=== PATIENT | female | born 1990 | race Caucasian/White ===

== ENCOUNTER 2016-07-14 11:57 | Inpatient (IN) | payer OTHER ==
[2016-07-14] MEDS ORDERED: IV VANCOMYCIN PER PHARMACY 1 EACH MISC MISCELLANE PRN (12:34)
[2016-07-14] MEDS ORDERED: SODIUM CHLORIDE 0.9% 1,000 ML IV STA (12:34)
[2016-07-14] MEDS ORDERED: VANCOMYCIN 1,000 MG in SODIUM CHLORIDE 0.9% 250 ML IVPB STA (12:34)
[2016-07-14] MEDS ORDERED: AMPICILLIN-SULBACTAM 3 GM in SODIUM CHLORIDE 0.9% 100 ML IVPB STA (12:35)
--- NOTE | 2016-07-14 12:43 | ED ---
General Adult HPI - General Chief complaint: Extremity Injury, Upper Stated complaint: ARM SWELLING, POSS MRSA Time Seen by Provider: 07/14/16 12:22 Source: patient Mode of arrival: ambulatory Limitations: no limitations - History of Present Illness Initial comments: This 26-year-old white female presents with a complaint of some infections. She states that she had an abscess on her back over the past week. This apparently was drained on 07/08/2016. She then followed up with an infectious disease doctor. She was told that she has MRSA. She just finished a course of Bactrim yesterday and is still taking Keflex. She then relates that she developed some swelling to her left arm over the past day or 2. This is in the left antecubital region. The swelling is fairly severe. She was seen at [facility] yesterday and told that she needed to be admitted to the hospital. She apparently left and followed up today as she lives in this area. She also complains of some swelling present to her right wrist area and somewhat in her right antecubital region. She denies any intravenous drug use. She denies ever utilizing heroin. She denies any fevers or chills. She states that the pain overall is fairly minimal. They have prescribed her some [place] for pain as well. She does have a history of MRSA remotely as well. No other complaints or modifying factors. She denies any possibility of . - Related Data Home Medications Medication Instructions Recorded Confirmed Cephalexin [Keflex] 500 mg PO Q6H 07/14/16 07/14/16 HYDROcodone/APAP 7.5-325MG [[place] 1 tab PO Q4H PRN 07/14/16 07/14/16 7.5-325] Allergies Allergy/AdvReac Type Severity Reaction Status Date / Time No Known Allergies Allergy Verified 07/14/16 12:36 Review of Systems ROS Statement: Those systems with pertinent positive or pertinent negative responses have been documented in the HPI. ROS Other: All systems not noted in ROS Statement are negative. Past Medical History Past Medical History: No Reported History History of Any Multi-Drug Resistant Organisms: MRSA Date of last positivie culture/infection: 2011, 2016 MDRO Source:: left knee, back Past Surgical History: No Surgical Hx Reported Past Psychological History: No Psychological Hx Reported Smoking Status: Current every day smoker Past Alcohol Use History: Daily, Heavy Past Drug Use History: None Reported General Exam - General Exam Comments Initial Comments: GENERAL: The patient is well nourished and well hydrated. VITAL SIGNS: Heart rate, blood pressure, respiratory rate reviewed as recorded in nurse's notes. EYES: Pupils are round and reactive. Extraocular movements are intact. No conjunctival / lid redness or swelling. ENT: No external evidence of injury, swelling, or ecchymosis. Airway is patent. Throat is clear. NECK: Nontender. No swelling or evidence of injury. No subcutaneous emphysema. Trachea is midline. No thyroid mass. HEART: Regular rate and rhythm. Good peripheral pulses. LUNGS/CHEST: Breath sounds clear and equal bilaterally. No rales, rhonchi, or wheezes. No ecchymosis, subcutaneous emphysema, or tenderness. ABDOMEN: Abdomen soft without tenderness. No palpable masses or organomegaly. No peritoneal signs. No abdominal wall swelling or ecchymosis. EXTREMITIES: No extremity tenderness. Normal muscle tone and function. No thoracolumbar tenderness. NEUROLOGIC: Sensation is grossly intact. Cranial nerve exam reveals face is symmetrical, tongue is midline, speech is clear. SKIN: There is significant swelling and suspected fluctuance noted to the left antecubital region. There is severe swelling of the left arm with associated erythema worse in the antecubital region. There is good pulses bilaterally. There is some slight swelling present in the right wrist area more over the dorsal aspect. There is some mild swelling and tortuosity of the veins noted in the right antecubital region with no associated erythema. There is very small diamond noted over the left wrist dorsally near associated veins. There is a wound noted to her back. This is in the T62T 11 region at midline extending laterally. There are 2 areas of denuded tissue. There is one area of necrosis noted over the right portion. There is some mild associated erythema. There is a slight yellowish drainage noted. There is no other integumentary abnormalities. PSYCHIATRIC: Alert and oriented. Appropriate behavior and judgment. Limitations: no limitations Course Vital Signs 07/14/16 07/14/16 12:01 14:30 Temperature 98.7 F 98.1 F Pulse Rate 71 83 Respiratory 18 18 Rate Blood Pressure 108/67 112/64 O2 Sat by Pulse 100 100 Oximetry Medical Decision Making - Medical Decision Making The patient was seen and examined. All diagnostics were reviewed. An IV is started and she is started on vancomycin and Unasyn. She denies any intravenous drug use although it is felt as though this type of scenario is highly suspicious for intravenous drug use. Her mother is present upon questioning and she refuses utilizing intravenous heroin twice. Later on and ER course, the mother leaves and the patient does admit to utilizing heroin regularly. She states that she usually only snorts it. She tried to inject herself one time several weeks ago but denies any other intravenous injecting. Her drug screen came back for narcotics, marijuana, cocaine, and benzodiazepines. She is counseled extensively regarding drug use/abuse. Her laboratories reviewed. She had an ultrasound done of her left antecubital region which shows a 5 cm 4 cm abscess. It is felt as though she would need surgical drainage of this area and possibly debridement of her back wound. The case is discussed with Dr. Schaefer and he is agreeable to admission with infectious disease to consult. She'll likely go to the operating room tomorrow morning. - Lab Data Result diagrams: 07/14/16 12:50 07/14/16 12:50 Lab Results 07/14/16 07/14/16 07/14/16 Range/Units 12:50 12:50 12:50 WBC 3.5 L (3.8-10.6) k/uL RBC 4.14 (3.80-5.40) m/uL Hgb 11.3 L (11.4-16.0) gm/dL Hct 34.0 (34.0-46.0) % MCV 82.1 (80.0-100.0) fL MCH 27.3 (25.0-35.0) pg MCHC 33.3 (31.0-37.0) g/dL RDW 13.4 (11.5-15.5) % Plt Count 415 (150-450) k/uL Neutrophils % 67 % Lymphocytes % 26 % Monocytes % 4 % Eosinophils % 2 % Basophils % 0 % Neutrophils # 2.4 (1.3-7.7) k/uL Lymphocytes # 0.9 L (1.0-4.8) k/uL Monocytes # 0.1 (0-1.0) k/uL Eosinophils # 0.1 (0-0.7) k/uL Basophils # 0.0 (0-0.2) k/uL Sodium 137 (137-145) mmol/L Potassium 4.6 (3.5-5.1) mmol/L Chloride 99 (98-107) mmol/L Carbon Dioxide 26 (22-30) mmol/L Anion Gap 12 mmol/L BUN 13 (7-17) mg/dL Creatinine 0.72 (0.52-1.04) mg/dL Est GFR (MDRD) Af Amer >60 (>60 ml/min/1.73 sqM) Est GFR (MDRD) Non-Af >60 (>60 ml/min/1.73 sqM) Glucose 104 H (74-99) mg/dL Calcium 9.1 (8.4-10.2) mg/dL Total Bilirubin 0.6 (0.2-1.3) mg/dL AST 33 (14-36) U/L ALT 30 (9-52) U/L Alkaline Phosphatase 93 (38-126) U/L Total Protein 8.1 (6.3-8.2) g/dL Albumin 3.4 L (3.5-5.0) g/dL HCG, Qual Not Detected Urine Color Yellow Urine Appearance Cloudy H (Clear) Urine pH 7.0 (5.0-8.0) Ur Specific [place] 1.016 (1.001-1.035) Urine Protein Trace H (Negative) Urine Glucose (UA) Negative (Negative) Urine Ketones Negative (Negative) Urine Blood Negative (Negative) Urine Nitrite Negative (Negative) Urine Bilirubin Negative (Negative) Urine Urobilinogen 6.0 (<2.0) mg/dL Ur Leukocyte Esterase Negative (Negative) Urine RBC <1 (0-5) /hpf Urine WBC 6 H (0-5) /hpf Ur Squamous Epith Cells 10 H (0-4) /hpf Urine Mucus Rare H (None) /hpf Urine Yeast (Budding) Rare H (None) /hpf Urine Opiates Screen Detected H (NotDetected) Ur Oxycodone Screen Not Detected (NotDetected) Urine Methadone Screen Not Detected (NotDetected) Ur Propoxyphene Screen Not Detected (NotDetected) Ur Barbiturates Screen Not Detected (NotDetected) U Tricyclic Antidepress Not Detected (NotDetected) Ur Phencyclidine Scrn Not Detected (NotDetected) Ur Amphetamines Screen Not Detected (NotDetected) U Methamphetamines Scrn Not Detected (NotDetected) U Benzodiazepines Scrn Detected H (NotDetected) Urine Cocaine Screen Detected H (NotDetected) U Marijuana (THC) Screen Detected H (NotDetected) Disposition Clinical Impression: Abscess of antecubital fossa, Polysubstance abuse, IV drug abuse, Open back wound, Anemia, Failure of outpatient treatment Disposition: ADMITTED IP TO THIS [facility] Condition: Fair Time of Disposition: 14:58 Decision Date: 07/14/16 Decision Time: 14:59
[2016-07-14 13:12] LABS: Basophils % (A) 0 %; CH 27.4; CHCM 33.5; Eosinophils # (A) 0.1 k/uL (0-0.7); Eosinophils % (A) 2 %; HDW 2.71; HGB 11.3 gm/dL (11.4-16.0); Luc # (Auto) 0.07; Luc % (Auto) 2; Lymphocytes # (A) 0.9 k/uL (1.0-4.8); Lymphocytes % (A) 26 %; MCH 27.3 pg (25.0-35.0); MCHC 33.3 g/dL (31.0-37.0); MCV 82.1 fL (80.0-100.0); Mean Platelet Volume 6.4; Monocytes # (A) 0.1 k/uL (0-1.0); Monocytes % (A) 4 %; Neutrophils # (A) 2.4 k/uL (1.3-7.7); Neutrophils % (A) 67 %; RBC 4.14 m/uL (3.80-5.40); RDW 13.4 % (11.5-15.5); WBC 3.5 k/uL (3.8-10.6); WBC (Perox) 3.61
[2016-07-14 13:20] LABS: HCG,Qualitative Serum Not Detected
[2016-07-14 13:24] LABS: ALT 30 U/L (9-52); AST 33 U/L (14-36); Alkaline Phosphatase 93 U/L (38-126); Anion Gap 12 mmol/L; Blood Urea Nitrogen 13 mg/dL (7-17); Calcium 9.1 mg/dL (8.4-10.2); Carbon Dioxide 26 mmol/L (22-30); Chloride 99 mmol/L (98-107); Glucose 104 mg/dL (74-99); Non-African American GFR(MDRD) >60 (>60 ml/min/1.73 sqM); Potassium 4.6 mmol/L (3.5-5.1); Sodium 137 mmol/L (137-145); Total Bilirubin 0.6 mg/dL (0.2-1.3); Total Protein 8.1 g/dL (6.3-8.2)
[2016-07-14 13:36] LABS: Appearance,Urine Cloudy (Clear); Bilirubin,Urine Negative (Negative); Glucose,Urine (UA) Negative (Negative); Ketones,Urine Negative (Negative); Leukocyte Esterase,Urine Negative (Negative); Mucus,Urine Rare /hpf; Nitrite,Urine Negative (Negative); Particle Count 6143; Protein,Urine Trace (Negative); RBC,Urine <1 /hpf (0-5); Specific Gravity,Urine 1.016 (1.001-1.035); Squamous Epithelial Cell,Urine 10 /hpf (0-4); UA Billing (MACRO vs. MICRO) MICRO; WBC,Urine 6 /hpf (0-5)
--- NOTE | 2016-07-14 13:59 | US ---
EXAMINATION TYPE: US extremity nonvasc mass LT DATE OF EXAM: 07/14/2016 1:47 PM COMPARISON: No previous CLINICAL HISTORY: swelling, possible abscess. Left antecubital region swelling x 2 days Left antecubital area of swelling: superficial 4.9 x 2.6 x 4.1cm irregular complex vascular area with internal mobile debris IMPRESSION: Findings suggest phlegmon or abscess.
[2016-07-14] MEDS ORDERED: NALOXONE 0.4 MG/ML 1 ML VIAL IV PRN (14:59)
[2016-07-14] MEDS ORDERED: ONDANSETRON 4 MG/2 ML VIAL IVP PRN (14:59)
[2016-07-14] MEDS ORDERED: HYDROcodone/APAP 7.5-325MG 1 EACH TAB PO PRN (15:03)
[2016-07-14 16:02] VITALS: BMI 20.1
[2016-07-14 16:51] VITALS: RESP 16
[2016-07-14] MEDS: AMPICILLIN-SULBACTAM 3 GM in SODIUM CHLORIDE 0.9% 100 ML IVPB SCH (17:26)
[2016-07-14] MEDS: VANCOMYCIN 1,000 MG in SODIUM CHLORIDE 0.9% 250 ML IVPB SCH (21:30)
[2016-07-15] MEDS: AMPICILLIN-SULBACTAM 3 GM in SODIUM CHLORIDE 0.9% 100 ML IVPB SCH ×3 (00:10→12:41)
[2016-07-15] MEDS: VANCOMYCIN 1,000 MG in SODIUM CHLORIDE 0.9% 250 ML IVPB SCH ×3 (06:14→21:39)
[2016-07-15] MEDS ORDERED: KETOROLAC 30 MG/ML 1 ML VIAL ONE (07:46)
[2016-07-15] MEDS ORDERED: PROPOFOL 10 MG/ML 20 ML VIAL IV ONE (07:46)
[2016-07-15] MEDS ORDERED: HYDROmorphone (PF) 1 MG/ML ONE (07:46)
[2016-07-15] MEDS ORDERED: LIDOCAINE 1% INJ 10MG/ML (20 ML MDV) ONE (07:46)
[2016-07-15] MEDS ORDERED: SUCCINYLCHOLINE CHLORIDE 100 MG/5 ML SYR IV ONE (07:46)
[2016-07-15] MEDS ORDERED: ONDANSETRON 4 MG/2 ML VIAL ONE (07:46)
[2016-07-15] MEDS ORDERED: fentaNYL (PF) 50 MCG/ML 2 ML AMP ONE (07:46)
[2016-07-15] MEDS ORDERED: MIDAZOLAM 2 MG/2 ML VIAL ONE (07:46)
[2016-07-15] MEDS ORDERED: IV FLUID CONTINUATION 600 ML IV ONE (07:46)
--- NOTE | 2016-07-15 07:46 | P.GSHP ---
History of Present Illness H&P Date: 07/15/16 Chief Complaint: Left antecubital abscess Patient with a history of recent MRSA infection involving her left mid back. This treatment took place down at [facility]. She has been following with a infectious disease doctor apparently in [place]. She lives in our area and decided to come to the hospital yesterday when she noticed gradual swelling of the left antecubital fossa over the last several days. Patient denies IV drug use. The wound on the back is still draining. The antecubital abscess region is not draining spontaneously. An ultrasound confirmed a phlegmon or abscess measuring approximate 5 cm. She admits to intermittent low- grade fevers. White blood cell count 3.5. Currently on IV antibiotics. - Review of Systems Comment: The patient denies any acute changes in his vision or hearing, no dysphagia or odynophagia, no chest pain or shortness of breath, no dysuria or hematuria, no headache, no runny nose, no rectal bleeding or melena, no unexplained weight loss Past Medical History Past Medical History: No Reported History History of Any Multi-Drug Resistant Organisms: MRSA Date of last positivie culture/infection: 2016 MDRO Source:: left knee, back Past Surgical History: No Surgical Hx Reported Past Psychological History: No Psychological Hx Reported Smoking Status: Current every day smoker Past Alcohol Use History: Daily, Heavy Past Drug Use History: None Reported Medications and Allergies Home Medications Medication Instructions Recorded Confirmed Type Cephalexin [Keflex] 500 mg PO Q6H 07/14/16 07/14/16 History HYDROcodone/APAP 7.5-325MG [[place] 1 tab PO Q4H PRN 07/14/16 07/14/16 History 7.5-325] Allergies Allergy/AdvReac Type Severity Reaction Status Date / Time No Known Allergies Allergy Verified 07/14/16 12:36 Surgical - Exam Vital Signs Temp Pulse Resp BP Pulse Ox 98.7 F 71 18 108/67 100 07/14/16 12:01 07/14/16 12:01 07/14/16 12:01 07/14/16 12:01 07/14/16 12:01 Physical exam: General: Well-developed, well-nourished HEENT: Normocephalic, sclerae nonicteric Abdomen: Nontender, nondistended Extremities: Left antecubital fossa with erythema, fluctuance, and tenderness, this spans a distance of approximate 4-5 cm, she has full flexion but limited extension of the elbow. The elbow joint itself does not appear to be swollen. No distal edema noted. In the left mid back she has an atypical-shaped wound present. There are 2 small wounds measuring less than 1 cm with a larger wound measuring approximately 3-4 cm and adjacent larger wound measuring about 3 cm. A 3 cm wound has a portion of necrotic skin that is still adherent to the surrounding edges. Mild tenderness noted in that region. Neuro: Alert and oriented Results - Labs 07/14/16 12:50 07/14/16 12:50 Assessment and Plan (1) Abscess of antecubital fossa Narrative/Plan: The patient I discussed the options. Plan at this time is to proceed with debridement of the left back wound and incision and drainage of the left antecubital abscess. Risks of bleeding, infection, wound formation, poor healing, potential need for additional procedures were discussed. She understands and wishes to proceed. Status: Acute
[2016-07-15] MEDS: HYDROmorphone 1 MG/ML 1 ML SYRINGE IVP ONE ×2 (08:35→08:53)
--- NOTE | 2016-07-15 08:35 | P.PCN ---
Date of Procedure: 07/15/16 Procedure(s) Performed: PREOPERATIVE DIAGNOSIS: Left back wound, left antecubital abscess POSTOPERATIVE DIAGNOSIS: Same PROCEDURE: Incision drainage and debridement SURGEON: Silvano EDWARDSL: Minimal ANESTHESIA: Gen. COMPLICATIONS: None OPERATIVE PROCEDURE: Applications place never table in the right decubitus position. The back wound was first addressed. The patient had a necrotic portion of skin and subcutaneous fat. This was excised sharply using a scalpel. A sterile wet-to-dry dressing was then applied. The patient was then placed supine. The left antecubital abscess was addressed. The patient's skin that was showing evidence of early necrosis was excised. This unfortunately did involve a transverse portion of skin was removed. Entrance into the subcutaneous abscess cavity took place. This tracked cephalad into the biceps region somewhat. This was thoroughly irrigated and evacuated. Cultures were taken. The wound was then packed with half-inch iodoform gauze. A sterile dressing was applied. DISPOSITION: Stable to recovery room
[2016-07-15] MEDS ORDERED: SODIUM CHLORIDE 0.9% 1,000 ML IV ONE (08:53)
[2016-07-15] MEDS: HYDROmorphone 1 MG/ML 1 ML SYRINGE IVP PRN ×4 (09:21→21:29)
[2016-07-15] MEDS: ENOXAPARIN 40 MG/0.4 ML SYRINGE SQ SCH (12:46)
[2016-07-15] MEDS ORDERED: VANCOMYCIN TROUGH DUE 1 EACH MISC MISCELLANE ONE (13:30)
--- NOTE | 2016-07-15 20:51 | CONS ---
DATE OF CONSULTATION: 07/15/2016. REASON FOR CONSULTATION: Left antecubital fossa abscess and back abscess infection. HISTORY OF PRESENT ILLNESS: The patient is a 26-year-old female who denies any history of IV drug use, did develop a spot on her back area that apparently was drained at the [facility] per patient on 07/08/2016. The patient has been treated with oral Keflex and Bactrim DS and the patient was subsequently sent to be evaluated by a physician that she saw in [place]. By that time, the patient started having swelling, redness of the left antecubital fossa. The patient continues to denies having used any IV drugs in that area, that become more swollen and red. The patient was offered to be admitted to the local hospital there in [place], however, the patient instead came to the [facility] where her family lives. The patient has been evaluated by the admitting physician. The patient will be admitted to Dr. Schaefer's service who evaluated the patient and took the patient to the OR this morning. The patient did have debridement of the wound to the lower back area with the excision of the necrotic area and some deep cultures. Subsequently, the patient did have a change of the left antecubital fossa abscess. Wound has been packed. She has been treated with vancomycin in addition to the Unasyn. I was asked to see the patient for further recommendation regarding antibiotic therapy. Patient complaining of some throbbing pain in the left elbow area, left antecubital fossa area about 7 to 6 out of 10 and no radiation. The patient denies having any nausea or vomiting. Denies any chest pain or shortness of breath or cough. No abdominal pain or any diarrhea. REVIEW OF SYSTEMS: CONSTITUTIONAL: Positive for weakness. No fever has been recorded. EYES: No complaint. ENT: No complaint. RESPIRATORY: No complaint. CARDIOVASCULAR: No complaint. GENITOURINARY: No complaint. GASTROINTESTINAL: No complaint. MUSCULOSKELETAL: As per HPI. INTEGUMENTARY: As per HPI. PSYCHOLOGICAL: No complaint. ENDOCRINE: No complaint. NEUROLOGICAL: No complaint. Past medical history significant for a left knee and back MRSA infection. PAST SURGICAL HISTORY: Surgical drainage of the back abscess. SOCIAL HISTORY: Currently an everyday smoker, heavy drinking though denies any IV drug use. FAMILY HISTORY: No pertinent findings noticed. ALLERGIES: No known drug allergies. MEDICATIONS: Currently include the patient is on: 1. Lovenox. 2. Dilaudid. 3. Narcan. 4. Zofran. 5. Vancomycin. 6. Unasyn. On examination, blood pressure is 103/62 with a pulse of 67, temperature 97.4. She is 98% on room air. General description is a middle-age female lying in bed in no distress. No tachypnea or accessory muscle of respiration use. HEENT shows pallor. No scleral icterus. Oral mucous membranes dry. NECK: Trachea central. There is no thyromegaly. LUNGS: Unlabored breathing. Clear to auscultation anteriorly. HEART: S1, S2 regular rate and rhythm. ABDOMEN: Soft. No tenderness. EXTREMITIES: No edema of the feet. Wound to the left decubital fossa currently packed as well as wound to the back packed this morning. The patient currently refusing for the pack to be taken off. There is some swelling but no significant redness was noticed on drainage. NEUROLOGICAL: The patient is awake, alert and oriented times three. Mood and affect normal. LABS: Hemoglobin 11.1, white count 3.5 with a BUN of 13, creatinine 0.72. Urine was positive for opiates, benzos, cocaine and marijuana. Wound culture positive for presumptive MRSA . Blood cultures negative so far. DIAGNOSTIC IMPRESSION AND PLAN: Patient with back as well as left antecubital fossa abscess, status post drainage. Outpatient culture positive for MRSA more likely the same pathogen, failing outpatient oral Bactrim and Keflex therapy. PLAN: 1. Vancomycin, pharmacy to dose with a target of 15 to continue. However, discontinue Unasyn. 2. Will continue local wound care with the dry packing. We will reevaluate the wound tomorrow at the time of dressing changes. 3. Will follow up on the clinical condition and cultures to further adjust the medication if needed. Thank you for this consultation. Will follow this patient along with you. MIMA
[2016-07-16] MEDS: HYDROmorphone 1 MG/ML 1 ML SYRINGE IVP PRN ×8 (00:22→22:02)
[2016-07-16] MEDS: MELATONIN 5 MG TABLET PO SCH ×2 (02:12→21:03)
[2016-07-16] MEDS: VANCOMYCIN 1,000 MG in SODIUM CHLORIDE 0.9% 250 ML IVPB SCH ×3 (06:23→21:02)
[2016-07-16 08:08] LABS: Basophils % (A) 0 %; CH 26.9; CHCM 31.2; Eosinophils % (A) 1 %; HCT 28.9 % (34.0-46.0); HDW 2.65; Hypochromasia Slight; Luc % (Auto) 3; Lymphocytes # (A) 1.1 k/uL (1.0-4.8); Lymphocytes % (A) 39 %; MCH 27.3 pg (25.0-35.0); MCHC 31.5 g/dL (31.0-37.0); MCV 86.5 fL (80.0-100.0); Mean Platelet Volume 6.9; Monocytes # (A) 0.1 k/uL (0-1.0); Monocytes % (A) 5 %; Neutrophils # (A) 1.5 k/uL (1.3-7.7); Neutrophils % (A) 52 %; RBC 3.34 m/uL (3.80-5.40); RDW 13.8 % (11.5-15.5); WBC 2.9 k/uL (3.8-10.6); WBC (Perox) 3.05
[2016-07-16 08:11] LABS: HGB 9.1 gm/dL (11.4-16.0)
[2016-07-16] MEDS: ENOXAPARIN 40 MG/0.4 ML SYRINGE SQ SCH (09:42)
--- NOTE | 2016-07-16 16:18 | P.PN ---
Subjective Principal diagnosis: Left antecubital abscess Patient says her pain is much improved. She has improved mobility of the left elbow. Cultures are suggesting probable MRSA. She is afebrile today. Objective - Vital Signs Vital signs: Vital Signs Temp 98.1 F 07/16/16 07:53 Pulse 73 07/16/16 07:53 Resp 16 07/16/16 16:00 BP 121/77 07/16/16 07:53 Pulse Ox 97 07/16/16 07:53 Intake & Output 07/15/16 07/16/16 07/16/16 18:59 06:59 18:59 Intake Total 1350 350 350 Output Total 25 Balance 1325 350 350 Weight 54.885 kg 54.885 kg Intake: IV 650 Intake, IV Titration 350 350 350 Amount Ampicillin-Sulbactam 3 gm 100 100 100 In Sodium Chloride 0.9% 100 ml @ 100 mls/hr IVPB Q6HR LEON Rx#:[id number] Vancomycin 1,000 mg In 250 250 250 Sodium Chloride 0.9% 250 ml @ 125 mls/hr IVPB Q8H LEON Rx#:[id number] Oral 350 Output: Estimated Blood Loss 25 Other: Voiding Method Toilet Toilet Toilet # Voids 2 1 1 - Exam Left arm and back wound both clean with mild tenderness, mild erythema - Labs CBC & Chem 7: 07/16/16 07:07 07/14/16 12:50 Labs: Abnormal Lab Results - Last 24 Hours (Table) 07/16/16 Range/Units 07:07 WBC 2.9 L (3.8-10.6) k/uL RBC 3.34 L (3.80-5.40) m/uL Hgb 9.1 L D (11.4-16.0) gm/dL Hct 28.9 L (34.0-46.0) % Microbiology - Last 24 Hours (Table) 07/15/16 08:25 Gram Stain - Preliminary Arm - Left Wound Culture - Preliminary Presumptive MRSA 07/15/16 08:25 Anaerobic Culture - Preliminary Arm - Left Assessment and Plan (1) Abscess of antecubital fossa Narrative/Plan: Continue local wound care. Anticipate probable discharge tomorrow if cleared by infectious disease. Status: Acute
[2016-07-16 16:23] VITALS: TEMP 97.9
[2016-07-17] MEDS: HYDROmorphone 1 MG/ML 1 ML SYRINGE IVP PRN ×4 (01:01→11:21)
[2016-07-17] MEDS: MELATONIN 5 MG TABLET PO SCH ×2 (04:25→04:41)
[2016-07-17] MEDS: VANCOMYCIN 1,000 MG in SODIUM CHLORIDE 0.9% 250 ML IVPB SCH (05:15)
--- NOTE | 2016-07-17 07:25 | PN ---
DATE OF SERVICE: 07/16/2016 Reason for follow-up is back wound, left arm MRSA wound infection. INTERVAL HISTORY: The patient is afebrile. She is feeling better. Still has some pain in the back and the left arm, but no worsening. Denies having any chest pain or shortness of breath. No cough. No abdominal pain. No diarrhea. On examination, blood pressure 121/70 with a pulse of 74, temperature 97.9. She is 99% on room air. General description is a middle-age female lying in bed in no distress. RESPIRATORY: Unlabored breathing. Clear to auscultation anteriorly. HEART: S1, S2. Regular rate and rhythm. ABDOMEN: Soft, no tenderness. The left antecubital fossa as well as the back wound looks clean with no significant redness. LABS: Hemoglobin 9.1, white count 2.9. Wound culture finalized with MRSA. DIAGNOSTIC IMPRESSION AND PLAN: Patient with methicillin-resistant Staphylococcus aureus back as well as the left arm abscess, status post drainage. PLAN: Continue with the vancomycin for another 24 hours. Local wound care with Aquacel Silver packing. If the patient continues to improve, plan to finish therapy with oral antibiotic in the form of Bactrim DS with close outpatient follow-up. MIMA
[2016-07-17 07:38] VITALS: BP 122/76; PULSE 78
[2016-07-17] MEDS: ENOXAPARIN 40 MG/0.4 ML SYRINGE SQ SCH (07:54)
[2016-07-17 08:57] LABS: Anion Gap 11 mmol/L; Blood Urea Nitrogen 10 mg/dL (7-17); Calcium 8.5 mg/dL (8.4-10.2); Carbon Dioxide 22 mmol/L (22-30); Chloride 108 mmol/L (98-107); Glucose 138 mg/dL (74-99); Non-African American GFR(MDRD) >60 (>60 ml/min/1.73 sqM); Potassium 3.5 mmol/L (3.5-5.1); Sodium 141 mmol/L (137-145)
--- NOTE | 2016-07-17 12:36 | PN ---
DATE OF SERVICE: 07/17/2016 Reason for followup is back and left arm MRSA infection. INTERVAL HISTORY: The patient is afebrile. She is feeling better. The patient denies significant chest pain or shortness of breath or cough. Pain to the left arm and the back area has improved and is insisting on going home. On examination, blood pressure 122/76 with a pulse of 78, temperature 97.9. She is 95% on room air. General description is a middle aged female lying in bed in no distress. RESPIRATORY SYSTEM: Unlabored breathing. Clear to auscultation anteriorly. HEART: S1, S2. Regular rate and rhythm. ABDOMEN: Soft, no tenderness. The wound to the left arm and the back area is currently packed and no drainage. LABS: Wound culture finalized with MRSA. Creatinine is 0.61. DIAGNOSTIC IMPRESSION AND PLAN: Patient with left arm and back area methicillin-resistant Staphylococcus aureus abscess, status post drainage. Culture has been positive for methicillin-resistant Staphylococcus aureus. Creatinine is normal. Hence, she is keen on going home. She will be switched over to Bactrim DS one twice a day for another 10 days along with Aquacel Silver packing of the wound and follow up in the office next week. Continue supportive care.
--- NOTE | 2016-07-17 12:47 | P.DS ---
Providers Date of admission: 07/14/16 14:59 Expected date of discharge: 07/17/16 Attending physician: Luke Schaefer Primary care physician: Stated None - Discharge Diagnosis(es) (1) Abscess of antecubital fossa Patient feels well today. Denies pain. She is afebrile. She's been cleared by infectious disease for discharge today. She was initially admitted with a antecubital abscess in the left side. She also had a back wound that required debridement. Postoperatively the patient has been kept on broad-spectrum antibiotics. MRSA has been the suspected bacterial source. Plan is outpatient oral antibiotics and outpatient follow-up with infectious disease. Wounds are clean at this time. Current Visit: Yes Status: Acute Patient Condition at Discharge: Fair Plan - Discharge Summary New Discharge Prescriptions: Sulfamethox-Tmp 800-160Mg [Bactrim DS 800-160 mg] 1 tab PO Q12HR #28 tab Discharge Medication List Cephalexin [Keflex] 500 mg PO Q6H 07/14/16 [History] HYDROcodone/APAP 7.5-325MG [[place] 7.5-325] 1 tab PO Q4H PRN 07/14/16 [History] Sulfamethox-Tmp 800-160Mg [Bactrim DS 800-160 mg] 1 tab PO Q12HR #28 tab [Rx] Follow up Appointment(s)/Referral(s): None,Stated [Primary Care Provider] - 1-2 days Kimberly Schaffer MD [STAFF PHYSICIAN] - 1 Week
[2016-07-18] MEDS ORDERED: VANCOMYCIN TROUGH DUE 1 EACH MISC MISCELLANE ONE (05:00)
== END 2016-07-17 13:30 | disposition home or self-care (01) | DRG 571 ==
LOC: EC 11:57 → 5MS5E 14:59
PROVIDERS: ADMIT Surgery; ATTEND Surgery
PROC: 0JB70ZZ Excision of Back Subcutaneous Tissue and Fascia, Open Approach (ICD-10-PCS; 2016-07-15)
PROC: 0KBB0ZZ Excision of Left Lower Arm and Wrist Muscle, Open Approach (ICD-10-PCS; principal; 2016-07-15 08:00)
DX: L02.414 Cutaneous abscess of left upper limb (principal); L02.212 Cutaneous abscess of back [any part, except buttock and flank]; B95.62 Methicillin resistant Staphylococcus aureus infection as the cause of diseases classified elsewhere; D64.9 Anemia, unspecified; F17.200 Nicotine dependence, unspecified, uncomplicated; F19.10 Other psychoactive substance abuse, uncomplicated; Z86.14 Personal history of Methicillin resistant Staphylococcus aureus infection
CPT/HCPCS: 36415; 80048; 80053; 80202; 80306; 81001; 84703; 85025; 87040; 87070; 87075; 87077; 87186; 87205; 96365; 96367; 99284